=== PATIENT | female | born 1955 | race African-American/Black ===

== ENCOUNTER 2017-10-10 14:20 | Emergency (ER) | payer BC ==
[2017-10-10] MEDS ORDERED: IBUPROFEN 400 MG TAB ONE (15:57)
--- NOTE | 2017-10-10 16:22 | RAD REPORT ---
EXAM DESCRIPTION: CT - CTHCSPWOC - 10/10/2017 4:08 pm CLINICAL HISTORY: Trauma, head and neck injury. PAIN COMPARISON: No comparisonsNo comparisons TECHNIQUE: Axial 5 mm thick images of the head were obtained. Axial 2 mm thick images of the cervical spine were obtained with sagittal and coronal reconstruction images generated and reviewed. All CT scans are performed using dose optimization technique as appropriate and may include automated exposure control or mA/KV adjustment according to patient size. FINDINGS: CT HEAD WITHOUT CONTRAST: No acute hemorrhage, hydrocephalus or extra-axial collection is identified.No areas of brain edema or midline shift. The paranasal sinuses and mastoids are clear.The calvarium is intact. CT CERVICAL SPINE WITHOUT CONTRAST: No fracture or subluxation.No prevertebral soft tissues swelling is identified. IMPRESSION: No acute intracranial or cervical spine findings.
[2017-10-10 16:57] LABS: Urine Blood NEGATIVE (NEG); Urine Glucose NEGATIVE (NEG); Urine Protein 1+ (NEG); Urine Specific Gravity 1.025 (1.005-1.030); Urine pH 5.5 (5.0-7.0)
--- NOTE | 2017-10-10 16:57 | EDPHYS ---
Physician Documentation [facility] Name: Sandhya Guerrero Age: 62 yrs Sex: Female : 1955 Arrival Date: 10/10/2017 Time: 14:23 Bed 10 Private MD: Out, [facility] ED Physician Tesfaye Ch HPI: 10/10 15:52 This 62 yrs old Black Female presents to ER via Ambulatory with complaints of Nerve kasey Pain-Head. 15:52 The patient complains of pain to the right occipital area and right base of the skull. kasey The patient describes the headache as intermittent. Onset: The symptoms/episode began/occurred 5 day(s) ago. Associated signs and symptoms: The patient has no apparent associated signs or symptoms. Severity of symptoms: At its worst the pain was moderate, in the emergency department the pain has improved, moderately. Headache History: The patient has had previous headaches and this one is similar to previous episodes. The symptoms are alleviated by nothing. the symptoms are aggravated by nothing. The patient has not experienced similar symptoms in the past. Historical: - Allergies: 14:56 Tylenol-Codeine #3; hb - Home Meds: 14:56 gabapentin 300 mg oral cap 1 cap 3 times per day [Active]; Fioricet Oral [Active]; hb - PMHx: 14:56 High Blood Pressure; knee pain; lower back pain; COPD; hb - PSHx: 14:56 None; hb - Immunization history:: Adult Immunizations up to date. - Social history:: Smoking status: Patient/guardian denies using tobacco. - Ebola Screening: : No symptoms or risks identified at this time. ROS: 15:52 Constitutional: Negative for fever, chills, and weight loss, Eyes: Negative for injury, kasey pain, redness, and discharge, ENT: Negative for injury, pain, and discharge, Neck: Negative for injury, pain, and swelling, Cardiovascular: Negative for chest pain, palpitations, and edema, Respiratory: Negative for shortness of breath, cough, wheezing, and pleuritic chest pain, Abdomen/GI: Negative for abdominal pain, nausea, vomiting, diarrhea, and constipation, Back: Negative for injury and pain, : Negative for injury, bleeding, discharge, and swelling, MS/Extremity: Negative for injury and deformity, Skin: Negative for injury, rash, and discoloration, Psych: Negative for depression, anxiety, suicide ideation, homicidal ideation, and hallucinations, Allergy/Immunology: Negative for hives, rash, and allergies, Endocrine: Negative for neck swelling, polydipsia, polyuria, polyphagia, and marked weight changes, Hematologic/Lymphatic: Negative for swollen nodes, abnormal bleeding, and unusual bruising. 15:52 Neuro: Positive for headache. Exam: 15:52 Constitutional: This is a well developed, well nourished patient who is awake, alert, kasey and in no acute distress. Eyes: Pupils equal round and reactive to light, extra-ocular motions intact. Lids and lashes normal. Conjunctiva and sclera are non-icteric and not injected. Cornea within normal limits. Periorbital areas with no swelling, redness, or edema. ENT: Nares patent. No nasal discharge, no septal abnormalities noted. Tympanic membranes are normal and external auditory canals are clear. Oropharynx with no redness, swelling, or masses, exudates, or evidence of obstruction, uvula midline. Mucous membranes moist. Neck: Trachea midline, no thyromegaly or masses palpated, and no cervical lymphadenopathy. Supple, full range of motion without nuchal rigidity, or vertebral point tenderness. No Meningismus. Chest/axilla: Normal chest wall appearance and motion. Nontender with no deformity. No lesions are appreciated. Cardiovascular: Regular rate and rhythm with a normal S1 and S2. No gallops, murmurs, or rubs. Normal PMI, no JVD. No pulse deficits. Respiratory: Lungs have equal breath sounds bilaterally, clear to auscultation and percussion. No rales, rhonchi or wheezes noted. No increased work of breathing, no retractions or nasal flaring. Abdomen/GI: Soft, non-tender, with normal bowel sounds. No distension or tympany. No guarding or rebound. No evidence of tenderness throughout. Back: No spinal tenderness. No costovertebral tenderness. Full range of motion. Female : Normal external genitalia. Skin: Warm, dry with normal turgor. Normal color with no rashes, no lesions, and no evidence of cellulitis. MS/ Extremity: Pulses equal, no cyanosis. Neurovascular intact. Full, normal range of motion. Neuro: Awake and alert, GCS 15, oriented to person, place, time, and situation. Cranial nerves II-XII grossly intact. Motor strength 5/5 in all extremities. Sensory grossly intact. Cerebellar exam normal. Normal gait. Psych: Awake, alert, with orientation to person, place and time. Behavior, mood, and affect are within normal limits. 15:52 Head/face: Noted is tenderness, that is mild, of the left occipital area and left base of the skull. 16:24 Neck: ROM/movement: Meningeal signs: are not present, Kernig's sign is negative, kasey Brudzinski's sign is negative, nuchal rigidity, is not appreciated. Vital Signs: 14:56 BP 129 / 79; Pulse 73; Resp 18; Temp 97.1; Pulse Ox 97% on R/A; Weight 139.71 kg; hb Height 5 ft. 2 in. (157.48 cm); Pain 10/10; 15:26 BP 129 / 91; rv 17:08 BP 129 / 86; rv 14:56 Body Mass Index 56.33 (139.71 kg, 157.48 cm) hb MDM: 15:23 Patient medically screened. [facility] 15:52 Data reviewed: vital signs, nurses notes, lab test result(s), radiologic studies, CT [facility] scan. 10/10 15:52 Order name: Urine Culture [facility] 10/10 16:38 Order name: Urine Dipstick--Ancillary (enter results) 10/10 15:52 Order name: Urine Dipstick-Ancillary (obtain specimen); Complete Time: 16:37 [facility] 10/10 15:52 Order name: CT Head C Spine; Complete Time: 16:24 [facility] Administered Medications: 15:56 Drug: Motrin 400 mg Route: PO; rv 16:57 Follow up: Response: No adverse reaction rv 17:10 Follow up: Response: No adverse reaction rv 17:10 Drug: LevOfloxacin 500 mg Route: PO; rv 17:10 Follow up: Response: Medication administered at discharge. rv Disposition: 10/10/17 16:56 Discharged to Home. Impression: Headache, Essential (primary) hypertension, Cystitis. - Condition is Stable. - Discharge Instructions: Dysuria, General Headache Without Cause, Hypertension, Hypertension, Qang-qd-Tjul, How to Take Your Blood Pressure, Nnsg-nu-Rfnk, General Headache Without Cause, Cxyw-ex-Aysi, Managing Your Hypertension. - Prescriptions for Norvasc 5 mg Oral Tablet - take 1 tablet by ORAL route once daily; 20 tablet. Motrin IB 200 mg Oral Tablet - take 2 tablet by ORAL route every 6 hours As needed as needed with food; 20 tablet. Levaquin 250 mg Oral Tablet - take 1 tablet by ORAL route once daily for 10 days; 6 tablet. - Medication Reconciliation Form, Thank You Letter, Antibiotic Education, Prescription Opioid Use form. - Follow up: Private Physician; When: 2 - 3 days; Reason: Recheck today's complaints, Continuance of care, Re-evaluation by your physician. Follow up: [facility]ak Vance; When: 2 - 3 days; Reason: Recheck today's complaints, Continuance of care, Re-evaluation by your physician. - Problem is new. - Symptoms have improved. Signatures: Dispatcher [employer] EDMS Tesfaye Ch MD MD cha Baxter, Heather, RN RN Elgin Maldonado RN RN rv Corrections: (The following items were deleted from the chart) 17:11 16:56 10/10/2017 16:56 Discharged to Home. Impression: Headache; Essential (primary) rv hypertension; Cystitis. Condition is Stable. Discharge Instructions: General Headache Without Cause, Hypertension, Hypertension, Beyo-ml-Brdk, How to Take Your Blood Pressure, Elok-te-Wykt, General Headache Without Cause, Booh-qm-Utpk, Managing Your Hypertension. Prescriptions for Norvasc 5 mg Oral Tablet - take 1 tablet by ORAL route once daily; 20 tablet, Motrin IB 200 mg Oral Tablet - take 2 tablet by ORAL route every 6 hours As needed as needed with food; 20 tablet. and Forms are Medication Reconciliation Form, Thank You Letter, Antibiotic Education, Prescription Opioid Use. Follow up: Private Physician; When: 2 - 3 days; Reason: Recheck today's complaints, Continuance of care, Re-evaluation by your physician. Follow up: [facility] Vance; When: 2 - 3 days; Reason: Recheck today's complaints, Continuance of care, Re-evaluation by your physician. Problem is new. Symptoms have improved. kasey
--- NOTE | 2017-10-10 16:57 | ER ---
Nurse's Notes [facility] Name: Sandhya Guerrero Age: 62 yrs Sex: Female : 1955 Arrival Date: 10/10/2017 Time: 14:23 Bed 10 Private MD: Out, [facility] Diagnosis: Headache;Essential (primary) hypertension;Cystitis Presentation: 10/10 14:52 Presenting complaint: Patient states: "I keep getting electrical shocks in the back of hb my head, I was seen at [facility] last week and they gave me medicine but it just makes me sleepy.". Transition of care: patient was not received from another setting of care. Onset of symptoms is unknown. Risk Assessment: Do you want to hurt yourself or someone else? Patient reports no desire to harm self or others. Initial Sepsis Screen: Does the patient meet any 2 criteria? No. Patient's initial sepsis screen is negative. Does the patient have a suspected source of infection? No. Patient's initial sepsis screen is negative. Care prior to arrival: Medication(s) given: Fioricet at 1257 today. 14:52 Method Of Arrival: Ambulatory 14:52 Acuity: SARKIS 4 hb Historical: - Allergies: 14:56 Tylenol-Codeine #3; hb - Home Meds: 14:56 gabapentin 300 mg oral cap 1 cap 3 times per day [Active]; Fioricet Oral [Active]; hb - PMHx: 14:56 High Blood Pressure; knee pain; lower back pain; COPD; hb - PSHx: 14:56 None; hb - Immunization history:: Adult Immunizations up to date. - Social history:: Smoking status: Patient/guardian denies using tobacco. - Ebola Screening: : No symptoms or risks identified at this time. Screenin:59 Abuse screen: Denies threats or abuse. Denies injuries from another. Nutritional rv screening: No deficits noted. Tuberculosis screening: No symptoms or risk factors identified. Fall Risk None identified. Assessment: 14:57 General: Appears in no apparent distress. comfortable, Behavior is calm, cooperative. rv Pain: Complains of pain in head. Neuro: Level of Consciousness is awake, alert, obeys commands, Oriented to person, place, time, situation. Cardiovascular: Heart tones S1 S2 present. Respiratory: Airway is patent. GI: No signs and/or symptoms were reported involving the gastrointestinal system. : No signs and/or symptoms were reported regarding the genitourinary system. EENT: No signs and/or symptoms were reported regarding the EENT system. Derm: Skin is intact. 15:56 Reassessment: Patient appears in no apparent distress at this time. Patient is alert, rv oriented x 3, equal unlabored respirations, skin warm/dry/pink. GIVEN MOTRIN FOR PAIN. AWAITING FOR URINE SAMPLE. Vital Signs: 14:56 BP 129 / 79; Pulse 73; Resp 18; Temp 97.1; Pulse Ox 97% on R/A; Weight 139.71 kg; hb Height 5 ft. 2 in. (157.48 cm); Pain 10/10; 15:26 BP 129 / 91; rv 17:08 BP 129 / 86; rv 14:56 Body Mass Index 56.33 (139.71 kg, 157.48 cm) hb ED Course: 14:23 Patient arrived in ED. sb2 14:24 Out, [facility] is Private Physician. sb2 14:55 Triage completed. hb 14:56 Arm band placed on right wrist. hb 14:59 Patient has correct armband on for positive identification. Call light in reach. NIBP rv on. 15:23 Tesfaye hC MD is Attending Physician. kasey 15:[address] vm2 16:08 CT Head C Spine In Process Unspecified. EDMS 16:09 CT completed. Patient tolerated procedure well. Patient moved back from CT. vm2 16:56 Kodak Vance MD is Referral Physician. kasey 17:09 No provider procedures requiring assistance completed. Patient did not have IV access rv during this emergency room visit. Administered Medications: 15:56 Drug: Motrin 400 mg Route: PO; rv 16:57 Follow up: Response: No adverse reaction rv 17:10 Follow up: Response: No adverse reaction rv 17:10 Drug: LevOfloxacin 500 mg Route: PO; rv 17:10 Follow up: Response: Medication administered at discharge. rv Outcome: 16:56 Discharge ordered by . kasey 17:09 Discharged to home ambulatory. rv 17:09 Condition: good 17:09 Discharge instructions given to patient, Instructed on discharge instructions, follow up and referral plans. medication usage, Prescriptions given X 3. 17:11 Patient left the ED. rv Addendum: 10/13/2017 12:22 Addendum: Culture Results: Positive urine culture. Phone call Attempt #1 called patient s s at 0925, left VM. Pt called back now stating that her UTI s/s have stopped and she is going to follow up with PCP for close follow up care. Signatures: Dispatcher [employer] Tesfaye Cervantes MD MD cha Smirch, Shelby, RN RN Jing Bañuelos RN RN Odalys Salazar 2 Charlee Hunter 2 Elgin Long RN RN rv Corrections: (The following items were deleted from the chart) 10/10 14:57 14:52 Acuity: SARKIS 3 hb hb
[2017-10-10] MEDS ORDERED: levoFLOXacin 500 MG TAB ONE (17:03)
[2017-10-10 18:38] VITALS: TEMP 97.1; O2SAT 97
[2017-10-10 18:39] VITALS: BP 129/86
== END 2017-10-10 17:11 | disposition home or self-care (01) ==
LOC: ER 14:20
DX: N30.90 Cystitis, unspecified without hematuria (principal); I10 Essential (primary) hypertension; J44.9 Chronic obstructive pulmonary disease, unspecified; Z88.5 Allergy status to narcotic agent
CPT/HCPCS: 70450; 72125; 81003; 87077; 87086; 87088; 87186; 99284

== ENCOUNTER 2019-03-31 14:13 | Emergency (ER) | payer BC, SELFPAY ==
--- OUTSIDE RECORDS SUMMARY | 2019-03-31 14:15 | XMS REPORT ---
:1955 [facility] [address] [place] [address] Dr. Arana [address] [place] [id number] Care Team Providers Name Role Phone Unavailable Unavailable Unavailable Payers Payer Name Policy Type Policy Number Effective Date Expiration Date Problems This patient has no known problems. Allergies, Adverse Reactions, Alerts This patient has no known allergies or adverse reactions. Medications This patient has no known medications.
[2019-03-31 15:29] LABS: Potassium 3.8 mmol/L (3.5-5.1)
[2019-03-31 15:39] LABS: Absolute Lymphocytes (CBC) 1.5 K/uL (0.7-4.9); Basophils % 0.9 % (0-1.3); Hematocrit 40.7 % (36.0-45.0); Lymphocytes % 21.6 % (15.3-44.8); MPV 10.3 fL (7.6-11.3); RBC Red Blood Cell Count 4.48 M/uL (3.86-4.86)
--- NOTE | 2019-03-31 16:01 | RAD REPORT ---
EXAM DESCRIPTION: US - Extrem Venous W Compress Kevin - 03/31/2019 3:54 pm CLINICAL HISTORY: Bilateral lower extremity pain, worse on the right COMPARISON: None. TECHNIQUE: Real-time sonographic evaluation of the bilateral lower extremity common femoral, superfi cial femoral, popliteal and posterior tibial veins was performed. FINDINGS: Normal compressibility, flow augmentation, phasic flow and spontaneous flow are identified in the left and right lower extremity common femoral, superficial femoral, popliteal and posterior t ibial veins. No intraluminal filling defects seen. IMPRESSION: No DVT in either lower extremity.
--- NOTE | 2019-03-31 16:01 | RAD REPORT ---
EXAM DESCRIPTION: RAD - Pelvis - 03/31/2019 3:36 pm CLINICAL HISTORY: Fall, pelvic pain COMPARISON: None. TECHNIQUE: AP imaging of the pelvis was obtained. FINDINGS: No fracture of the bony pelvis. No fracture, dislocation or other acute hip joint finding. No significant SI joint findings. Lower lumbar degenerative changes are present only partially imaged. No soft tissue abnormality. IMPRESSION: Negative pelvis for acute or significant findings.
--- NOTE | 2019-03-31 16:02 | RAD REPORT ---
EXAM DESCRIPTION: RAD - Femur Right - 03/31/2019 3:36 pm CLINICAL HISTORY: Fall, right hip and leg pain COMPARISON: None. FINDINGS: No fracture, dislocation or periosteal reaction noted. No acute or suspicious bony finding . Degenerative changes are present at the knee joint and hip joint. Hip and proximal femur detail is limited due to body habitus IMPRESSION: Negative right femur examination for acute finding.
--- NOTE | 2019-03-31 16:07 | EDPHYS ---
Physician Documentation [facility] Name: Sandhya Guerrero Age: 64 yrs Sex: Female : 1955 Arrival Date: 03/31/2019 Time: 14:14 Bed 20 Private MD: ED Physician Chris Pete HPI: 03/31 15:26 This 64 yrs old Black Female presents to ER via Wheelchair with complaints of Leg Pain. rn 15:26 The patient presents with pain, that is chronic. The complaints affect the right rn quadriceps. Onset: The symptoms/episode began/occurred at an unknown time. Modifying factors: The symptoms are alleviated by nothing. the symptoms are aggravated by movement, weight bearing. Severity of symptoms: At their worst the symptoms were mild, in the emergency department the symptoms are unchanged. The patient has experienced similar episodes in the past. Reports has had multiple falls "for awhile now", last fall 2 days ago, fell forward, landed on right knee, reports mild increase in right hip pain, no numbness/tingling. Reports intermittent swelling to bilateral thighs. NO hx of dvt. No hx of kidney or heart failure. . Historical: - Allergies: 14:24 Tylenol-Codeine #3; sv - PMHx: 14:24 COPD; High Blood Pressure; knee pain; lower back pain; sv - PSHx: 14:24 None; sv - Immunization history:: Adult Immunizations up to date. - Family history:: not pertinent. - Ebola Screening: : Patient negative for fever greater than or equal to 101.5 degrees Fahrenheit, and additional compatible Ebola Virus Disease symptoms. - Hospitalizations: : No recent hospitalization is reported. ROS: 15:26 Constitutional: Negative for fever, chills, and weight loss, Abdomen/GI: Negative for rn abdominal pain, nausea, vomiting, diarrhea, and constipation, Back: Negative for injury and pain, : Negative for injury, bleeding, discharge, and swelling, MS/Extremity: + leg pain and injury Skin: Negative for injury, rash, and discoloration, Neuro: Negative for headache, weakness, numbness, tingling, and seizure. Exam: 15:26 Constitutional: This is a well developed, well nourished patient who is awake, alert, rn and in no acute distress. Abdomen/GI: soft, non-tender Back: Full range of motion. Skin: Warm, dry with normal turgor. Normal color with no rashes, no lesions, and no evidence of cellulitis. MS/ Extremity: Pulses equal, no cyanosis. Neurovascular intact. Full, normal range of motion. Equal circumference. No focal fluid collection/erythema/fluctuance. Neuro: Awake and alert, GCS 15, oriented to person, place, time, and situation. Motor strength 5/5 in all extremities. Sensory grossly intact. Vital Signs: 14:23 BP 129 / 73; Pulse 76; Resp 16; Temp 97; Pulse Ox 100% ; sv 15:00 BP 120 / 75; Pulse 63; Resp 17; Pulse Ox 97% ; rb1 15:54 BP 136 / 98; Pulse 62; Resp 16; Temp 97.5(O); Pulse Ox 97% on R/A; mh5 MDM: 14:41 Patient medically screened. rn 16:03 Differential diagnosis: arthritis, radiculopathy, neuropathy, dependant edema, rn lymphedema, DVT. Data reviewed: vital signs, nurses notes, lab test result(s), radiologic studies, doppler, plain films, and as a result, I will discharge patient. Counseling: I had a detailed discussion with the patient and/or guardian regarding: the historical points, exam findings, and any diagnostic results supporting the discharge/admit diagnosis, lab results, radiology results, the need for outpatient follow up, to return to the emergency department if symptoms worsen or persist or if there are any questions or concerns that arise at home. Response to treatment: the patient's symptoms have mildly improved after treatment, and as a result, I will discharge patient. Special discussion: I discussed with the patient/guardian in detail that at this point there is no indication for admission to the hospital. It is understood, however, that if the symptoms persist or worsen the patient needs to return immediately for re-evaluation. ED course: No acute finding in bloodwork or ultrasound, will dc home with leg elevation, anti-inflammatory, compression stockings, and pcp f/u. . 03/31 14:54 Order name: Basic Metabolic Panel; Complete Time: 15:41 rn 03/31 15:11 Order name: CBC with Diff; Complete Time: 16:01 rb1 03/31 14:54 Order name: IV Start; Complete Time: 15:10 rn 03/31 14:54 Order name: Extrem Venous W Compression Kevin US; Complete Time: 16:03 rn 03/31 14:54 Order name: XRAY Pelvis; Complete Time: 16:03 rn 03/31 14:54 Order name: XRAY Femur RIGHT; Complete Time: 16:03 rn Administered Medications: No medications were administered Disposition: 03/31/19 16:05 Discharged to Home. Impression: Pain in right leg. - Condition is Stable. - Discharge Instructions: Musculoskeletal Pain. - Medication Reconciliation Form, Thank You Letter, Antibiotic Education, Prescription Opioid Use form. - Follow up: Private Physician; When: As needed; Reason: Recheck today's complaints, Re-evaluation by your physician. - Problem is an ongoing problem. - Symptoms have improved. Signatures: Dispatcher [employer] EDJinny Moffett RN RN Chris Zabala MD MD rn Barber, Rebecca, RN RN rb1 Corrections: (The following items were deleted from the chart) 16:57 16:05 03/31/2019 16:05 Discharged to Home. Impression: Pain in right leg. Condition is rb1 Stable. Forms are Medication Reconciliation Form, Thank You Letter, Antibiotic Education, Prescription Opioid Use. Follow up: Private Physician; When: As needed; Reason: Recheck today's complaints, Re-evaluation by your physician. Problem is an ongoing problem. Symptoms have improved. rn
--- NOTE | 2019-03-31 16:07 | ER ---
Nurse's Notes [facility] Name: Sandhya Guerrero Age: 64 yrs Sex: Female : 1955 Arrival Date: 03/31/2019 Time: 14:14 Bed 20 Private MD: Diagnosis: Pain in right leg Presentation: 03/31 14:23 Presenting complaint: Patient states: RLE pain and "a growth on my upper leg after I sv fell getting out of bed, I fall a lot." Also c/o right arm pain. Transition of care: patient was not received from another setting of care. Onset of symptoms was March 29, 2019. Risk Assessment: Do you want to hurt yourself or someone else? Patient reports no desire to harm self or others. Care prior to arrival: None. 14:23 Method Of Arrival: Wheelchair sv 14:23 Acuity: SARKIS 3 sv 14:30 Initial Sepsis Screen: Does the patient meet any 2 criteria? No. Patient's initial rb1 sepsis screen is negative. Does the patient have a suspected source of infection? No. Patient's initial sepsis screen is negative. Historical: - Allergies: 14:24 Tylenol-Codeine #3; sv - PMHx: 14:24 COPD; High Blood Pressure; knee pain; lower back pain; sv - PSHx: 14:24 None; sv - Immunization history:: Adult Immunizations up to date. - Family history:: not pertinent. - Ebola Screening: : Patient negative for fever greater than or equal to 101.5 degrees Fahrenheit, and additional compatible Ebola Virus Disease symptoms. - Hospitalizations: : No recent hospitalization is reported. Screenin:30 Abuse screen: Denies threats or abuse. Nutritional screening: No deficits noted. rb1 Tuberculosis screening: No symptoms or risk factors identified. Fall Risk Fall in past 12 months (25 points). Secondary diagnosis (15 points) impaired mobility, IV access (20 points). Ambulatory Aid- Crutches/Cane/Walker (15 pts). Gait- Impaired (20 pts.). Mental Status- Oriented to own ability (0 pts). Total Canales Fall Scale indicates High Risk Score (45 or more points). Fall prevention measures have been instituted. Side Rails Up X 2 Placed Close to Nursing Station 1:1 Attendant Assigned Frequent Obs/Assessments Occuring Family Present and informed to notify staff if the need to leave the bedside As available patient and family educated on Fall Prevention Program and Strategies. Assessment: 14:30 General: Appears in no apparent distress. comfortable, Behavior is calm, cooperative, rb1 Denies fever. General: Pt. reports falling two days ago.. Pain: Complains of pain in right leg, left arm Pain currently is 6 out of 10 on a pain scale. at worst was 10 out of 10 on a pain scale. Aggravated by walking. Neuro: Level of Consciousness is awake, alert, obeys commands, Oriented to person, place, time, situation. Cardiovascular: Capillary refill < 3 seconds is brisk in bilateral fingers. Respiratory: Airway is patent Respiratory effort is even, unlabored, Respiratory pattern is regular, symmetrical. GI: No signs and/or symptoms were reported involving the gastrointestinal system. : No signs and/or symptoms were reported regarding the genitourinary system. Derm: Skin is dry, Skin is normal, Skin temperature is warm Pt. reports having a growth on the right leg that is painful and she thinks that there is a growth starting on the left leg. Musculoskeletal: Range of motion: intact in all extremities. 15:30 Reassessment: Patient appears in no apparent distress at this time. No changes from rb1 previously documented assessment. 16:30 Reassessment: Patient appears in no apparent distress at this time. Patient and/or rb1 family updated on plan of care and expected duration. Pain level reassessed. Patient is alert, oriented x 3, equal unlabored respirations, skin warm/dry/pink. Vital Signs: 14:23 BP 129 / 73; Pulse 76; Resp 16; Temp 97; Pulse Ox 100% ; sv 15:00 BP 120 / 75; Pulse 63; Resp 17; Pulse Ox 97% ; rb1 15:54 BP 136 / 98; Pulse 62; Resp 16; Temp 97.5(O); Pulse Ox 97% on R/A; mh5 ED Course: 14:14 Patient arrived in ED. as 14:24 Triage completed. sv 14:24 Arm band placed on. sv 14:26 Radha Parrish, RN is Primary Nurse. rb1 14:30 Patient has correct armband on for positive identification. Bed in low position. Call rb1 light in reach. Side rails up X 1. Pulse ox on. NIBP on. 14:41 Chris Pete MD is Attending Physician. rn 15:05 Inserted saline lock: 20 gauge in right antecubital area, using aseptic technique. rb1 ,using aseptic technique. IV inserted by AQUILINO Casarez Blood collected. 15:36 XRAY Pelvis In Process Unspecified. EDMS 15:36 XRAY Femur RIGHT In Process Unspecified. EDMS 15:53 Ultrasound completed. Patient tolerated well. sg3 15:54 Extrem Venous W Compression Kevin US In Process Unspecified. EDMS 16:45 No provider procedures requiring assistance completed. IV discontinued, intact, rb1 bleeding controlled, No redness/swelling at site. Pressure dressing applied. Administered Medications: No medications were administered Outcome: 16:05 Discharge ordered by MD. rn 16:45 Patient left the ED. rb1 16:45 Discharged to home ambulatory. rb1 16:45 Condition: stable 16:45 Discharge instructions given to patient, Instructed on discharge instructions, follow up and referral plans. Demonstrated understanding of instructions, follow-up care, Prescriptions given X none Signatures: Dispatcher [employer] Jinny Harman RN RN sv Martinez, Amelia as Nieto, Roman, MD MD rn Barber, Rebecca, RN RN rb1 Martinez, Jazmín [facility] Deirdre Mckee sg3 Corrections: (The following items were deleted from the chart) 17:00 16:57 Patient left the ED. rb1 rb1
[2019-03-31 17:22] VITALS: O2SAT 97
[2019-03-31 17:23] VITALS: BP 136/98; TEMP 97.5
== END 2019-03-31 16:57 | disposition home or self-care (01) ==
LOC: ER 14:13
DX: M79.604 Pain in right leg (principal); I10 Essential (primary) hypertension; W19.XXXA Unspecified fall, initial encounter; Y93.9 Activity, unspecified; Y92.9 Unspecified place or not applicable; Z88.5 Allergy status to narcotic agent; Z91.81 History of falling
CPT/HCPCS: 36415; 72170; 80048; 85025; 93970; 99284